=== PATIENT | male | born 1975 | race Caucasian/White ===

== ENCOUNTER 2022-02-18 08:41 | Day surgery (SDC) | payer MEDICAID ==
[2022-02-18] MEDS: Sodium Chloride 0.9% 1,000 ML IV SCH (09:20)
[2022-02-18] MEDS ORDERED: Midazolam 1 MG/ML 2 ML SDV ONE (09:29)
[2022-02-18] MEDS ORDERED: fentaNYL 100 MCG/2 ML SDV ONE (09:29)
[2022-02-18] MEDS ORDERED: Propofol 200 MG/20 ML SDV ONE (09:29)
== END 2022-02-18 11:21 | disposition home or self-care (01) ==
LOC: JP.SDS 08:41
PROVIDERS: ATTEND Surgery
DX: Z12.11 Encounter for screening for malignant neoplasm of colon (principal); G47.33 Obstructive sleep apnea (adult) (pediatric); I10 Essential (primary) hypertension; E66.01 Morbid (severe) obesity due to excess calories
CPT/HCPCS: 45378; J2250; J2704; J3010; J7030